=== PATIENT | male | born 1985 | race Two or more races ===

== ENCOUNTER 2017-03-01 19:35 | Emergency (ER) | payer OTHER ==
[~2017-03-01] VITALS: Ht 185.4 cm; Wt 136.1 kg
[2017-03-01] MEDS ORDERED: AMLODIPINE BESYL5 MG ORAL (19:38)
--- NOTE | 2017-03-01 19:53 | Emergency Room Report ---
History of Present Illness General Chief Complaint: Chest Pain Source: Patient Present Illness HPI The patient presents with palpitations and chest "fatigue". This started earlier today when he was driving. He also feels worse when he stands up. He has a history of autonomic dysfunction that he was told was related to his sleep apnea. He also has hypertension. He is on medication for hypertension and this hasn't changed recently. Paramedics were summoned and transported the patient with a normal EKG aside from tachycardia. They state that the patient denied symptoms to them and so they didn't treat him on the way in. The fatigue in his chest is rated at a 7/10 - improved when laying down or sitting. When asked about stress, evasive. "Everyone's stressed." The patient denies any fevers, chills, vomiting or diarrhea. He denies any upper respiratory infection symptoms. Has had issues with autonomic instability for quite a while. Recently better. Echo 5 years ago was normal. No h/o clots in the past. 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 Nursing Documentation: PMH: Agreed, PSxH: Agreed Nursing Documentation-PMH Hx Hypertension: Yes Review of Systems All Other Systems: negative except mentioned in HPI Physical Exam Vital Signs Date Time Temp Pulse Resp B/P (MAP) Pulse Ox O2 Delivery O2 Flow Rate FiO2 03/01/17 19:30 98.8 96 15 127/105 100 Room Air Sp02 EP Interpretation: reviewed, normal General Appearance: well appearing, no apparent distress, GCS 15 Head: normocephalic Eyes: bilateral eye normal inspection, bilateral eye PERRL ENT: moist mucus membranes Neck: supple Respiratory: chest non-tender, lungs clear, normal breath sounds Cardiovascular #1: regular rate, rhythm, no edema Cardiovascular #2: 2+ radial (R) Gastrointestinal: normal inspection, normal bowel sounds, non tender, no mass, non-distended, overweight Musculoskeletal: back normal, gait/station normal, normal range of motion, no calf tenderness, Sacha's Sign negative Neurologic: alert, oriented x3, grossly normal Psychiatric: depressed affect Skin: normal inspection, warm/dry Medical Decision Making Diagnostic Impression: Primary Impression: Palpitations Additional Impressions: Symptomatic orthostatic increase in heart rate History of autonomic instability ER Course Patient presents with palpitations and chest pressure. Differential includes acute myocardial infarction, autonomic instability, dehydration, pulmonary embolus, adverse reaction to medication amongst others. Based on his vital signs and history pulmonary embolus is less likely. Evaluation will be with EKG , chest x-ray and labs. Cardiac risk factors are low (HTN). Orthostatics with some increase in pulse without hypotension. EKG reveals sinus rhythm with nonspecific ST-T wave changes without injury. CXR no abnormality. Labs with normal WBC, H/H, lytes, troponin. Patient improved with IV hydration. Feels much better but still minimal strange feeling when stands up. Ambulation not lead to symptoms. Discussed outpatient observation. Patient understands that if not well, or worsened symptoms, to return. Patient stable for outpatient observation and treatment. Laboratory Tests Test 03/01/17 19:40 03/01/17 19:45 Urine Color Yellow Urine Appearance Clear Urine pH 8 (4.5-8.0) Urine Specific [place] 1.015 (1.005-1.035) Urine Protein Negative (NEGATIVE) Urine Glucose (UA) Negative (NEGATIVE) Urine Ketones Negative (NEGATIVE) Urine Occult Blood Negative (NEGATIVE) Urine Nitrite Negative (NEGATIVE) Urine Bilirubin Negative (NEGATIVE) Urine Urobilinogen Normal MG/DL (0.0-1.0) Urine Leukocyte Esterase Negative (NEGATIVE) Urine Opiates Screen Negative (NEGATIVE) Urine Barbiturates Screen Negative (NEGATIVE) Phencyclidine (PCP) Screen Negative (NEGATIVE) Urine Amphetamines Screen Negative (NEGATIVE) Urine Benzodiazepines Screen Negative (NEGATIVE) Urine Cocaine Screen Negative (NEGATIVE) Urine Marijuana (THC) Screen Negative (NEGATIVE) White Blood Count 9.9 K/UL (4.8-10.8) Red Blood Count 5.39 M/UL (4.70-6.10) Hemoglobin 15.9 G/DL (14.2-18.0) Hematocrit 47.8 % (42.0-52.0) Mean Corpuscular Volume 89 FL (80-99) Mean Corpuscular Hemoglobin 29.4 PG (27.0-31.0) Mean Corpuscular Hemoglobin Concent 33.2 G/DL (32.0-36.0) Red Cell Distribution Width 11.7 % (11.6-14.8) Platelet Count 255 K/UL (150-450) Mean Platelet Volume 5.2 FL (6.5-10.1) L Neutrophils (%) (Auto) 77.7 % (45.0-75.0) H Lymphocytes (%) (Auto) 13.5 % (20.0-45.0) L Monocytes (%) (Auto) 6.0 % (1.0-10.0) Eosinophils (%) (Auto) 1.9 % (0.0-3.0) Basophils (%) (Auto) 0.8 % (0.0-2.0) Prothrombin Time 10.0 SEC (9.30-11.50) Prothrombin Time INR 1.0 (0.9-1.1) PTT 26 SEC (23-33) Sodium Level 141 mEQ/L (135-145) Potassium Level 3.9 mEQ/L (3.4-4.9) Chloride Level 100 mEQ/L (98-107) Carbon Dioxide Level 26 mEQ/L (20-30) Anion Gap 15 (5-15) Blood Urea Nitrogen 13 mg/dL (7-23) Creatinine 0.8 mg/dL (0.7-1.2) Estimate Glomerular Filtration Rate > 60 mL/min (>60) Glucose Level 121 mg/dL (74-106) H Calcium Level 9.7 mg/dL (8.6-10.2) Total Bilirubin 0.5 mg/dL (0.0-1.2) Aspartate Amino Transferase (AST) 30 U/L (5-40) Alanine Aminotransferase (ALT) 55 U/L (3-41) H Alkaline Phosphatase 47 U/L (40-129) Total Creatine Kinase 101 U/L (38-174) Troponin I 0.000 ng/mL (0.000-0.056) Pro-B-Type Natriuretic Peptide 34 pg/mL (0-125) Total Protein 9.3 g/dL (6.6-8.7) H Albumin 4.6 g/dL (3.5-5.2) Globulin 4.7 g/dL Albumin/Globulin Ratio 0.9 (1.0-2.7) L EKG Diagnostic Results Rate: normal Rhythm: NSR ST Segments: no acute changes Rhythm Strip Diag. Results EP Interpretation: yes Rhythm: NSR, no PVC's, no ectopy Chest X-Ray Diagnostic Results Chest X-Ray Diagnostic Results : Chest X-Ray Ordered: Yes # of Views/Limited/Complete: 1 View Indication: Chest Pain EP Interpretation: Yes Interpretation: no consolidation, no effusion, no pneumothorax, no acute cardiopulmonary disease Impression: No acute disease Electronically Signed by: Electronically signed by Baljeet Anthony MD Last Vital Signs Date Time Temp Pulse Resp B/P (MAP) Pulse Ox O2 Delivery O2 Flow Rate FiO2 03/01/17 22:12 98.6 76 17 107/56 99 Room Air Status: improved Disposition: HOME, SELF-CARE Condition: Improved Baljeet Anthony M.D. Mar 01, 2017 19:53
[2017-03-01 20:03] LABS: KETONES,URINE NEGATIVE (NEGATIVE); LEUKOCYTE ESTERASE ,URINE NEGATIVE (NEGATIVE); NITRITE,URINE NEGATIVE (NEGATIVE); PH,URINE 8 (4.5-8.0); PROTEIN,URINE NEGATIVE (NEGATIVE); UROBILINOGEN,URINE NORMAL MG/DL (0.0-1.0)
[2017-03-01 20:04] LABS: BASOPHILS % (AUTO) 0.8 % (0.0-2.0); EOSINOPHILS % (AUTO) 1.9 % (0.0-3.0); LYMPHOCYTES % (AUTO) 13.5 % (20.0-45.0); MEAN CORPUSCULAR HEMOGLOBIN 29.4 PG (27.0-31.0); MEAN CORPUSCULAR HGB CONC 33.2 G/DL (32.0-36.0); MEAN CORPUSCULAR VOLUME 89 FL (80-99); MEAN PLATELET VOLUME 5.2 FL (6.5-10.1); NEUTROPHILS % (AUTO) 77.7 % (45.0-75.0); PLATELET COUNT 255 K/UL (150-450); RED BLOOD COUNT 5.39 M/UL (4.70-6.10); RED CELL DISTRIBUTION WIDTH 11.7 % (11.6-14.8); WHITE BLOOD COUNT 9.9 K/UL (4.8-10.8)
[2017-03-01 20:07] VITALS: BP_SYST 125; BP_SYST 139; BP_SYST 145; BP_DIAS 102; BP_DIAS 85; BP_DIAS 90
[2017-03-01 20:07] LABS: APPEARANCE,URINE CLEAR
[2017-03-01 20:38] LABS: ALANINE AMINOTRANSFERASE 55 U/L (3-41); ALBUMIN/GLOBULIN RATIO 0.9 (1.0-2.7); ASPARTATE AMINO TRANSFERASE 30 U/L (5-40); CALCIUM 9.7 mg/dL (8.6-10.2); CARBON DIOXIDE 26 mEQ/L (20-30); CREATININE 0.8 mg/dL (0.7-1.2); GLOMERULAR FILTRATION RATE > 60 mL/min (>60); HEMOLYSIS 34; TOTAL PROTEIN 9.3 g/dL (6.6-8.7)
[2017-03-01 20:39] LABS: ANION GAP 15 (5-15); CHLORIDE 100 mEQ/L (98-107); POTASSIUM 3.9 mEQ/L (3.4-4.9); SODIUM 141 mEQ/L (135-145)
[2017-03-01 20:48] VITALS: BP 110/58
[2017-03-01 22:10] VITALS: BP 107/56
[2017-03-01 22:12] VITALS: BP 107/56
--- NOTE | 2017-03-02 09:31 | Diagnostic Imaging Report ---
Indication: Chest pain Technique: XRAY CHEST 1 V Comparison: None Findings: The cardiomediastinal silhouette is within normal limits. There is no focal consolidation, pneumothorax or pleural effusion. Osseous structures demonstrate no acute abnormality. Impression: No acute cardiopulmonary disease.
--- NOTE | 2017-03-06 23:07 | Cardiology Report ---
APPROVED REPORT EKG Measurement Heart [id number] Normal sinus rhythm Nonspecific T wave abnormality Abnormal ECG
== END 2017-03-01 22:13 | disposition home or self-care (01) ==
LOC: EDBD 19:35 → EMR 19:56
DX: R07.89 Other chest pain (principal); R00.2 Palpitations; I10 Essential (primary) hypertension
CPT/HCPCS: 36415; 71010; 80053; 80300; 81003; 82550; 82962; 83880; 84484; 85025; 85610; 85730; 93005; 96361; 96374; 99284